=== PATIENT | male | born 1980 | race Caucasian/White ===

== ENCOUNTER 2020-08-15 11:43 | Emergency (ER) | payer OTHER ==
[~2020-08-15] VITALS: Ht 175.3 cm; Wt 106.1 kg
[2020-08-15 11:47] VITALS: BP 156/90
--- NOTE | 2020-08-15 11:50 | NUR ---
Patient ambulated to bed 2. RN evaluating the patient at bedside.
--- NOTE | 2020-08-15 12:01 | NUR ---
40 YEAR OLD MALE COMPLAINS OF LOWER BACK PAIN X 5 DAYS. PT DENIES TRAUMA. PT STATES MORE OF A CHRONIC PAIN. PT AOX4, BREATHING EVEN AND UNLABORED, SKIN WARM AND DRY. BED IN LOWEST POSITION, LOCKED, BED RAIL UPX1. PMH - DENIES ALLERGIES - NKA
[2020-08-15] MEDS ORDERED: ACETAMINOPHEN EXTRA STRENGTH 500 MG TAB PO ONE (12:15)
[2020-08-15] MEDS ORDERED: KETOROLAC 15 MG/ML VIAL IM ONE (12:20)
[2020-08-15] MEDS ORDERED: MORPHINE SULFATE 4 MG/ML SYR IVP ONE (13:25)
[2020-08-15] MEDS ORDERED: ONDANSETRON 4 MG ODT PO ONE (13:25)
[2020-08-15] MEDS ORDERED: NAPR-54 PO (14:29)
[2020-08-15] MEDS ORDERED: ACET-10509 PO (14:30)
[2020-08-15 14:50] VITALS: BP 156/90
--- NOTE | 2020-08-15 14:51 | NUR ---
Patient discharged with v/s stable. Written and verbal after care instructions given BACK PAIN and explained. Patient alert, oriented and verbalized understanding of instructions. Ambulatory with steady gait. All questions addressed prior to discharge. ID band removed. Patient advised to follow up with PMD. Rx of NAPROXEN 500MG PO TID, AND TYNENOL 500MG PO Q6H PRN given. Patient educated on indication of medication including possible reaction and side effects. Opportunity to ask questions provided and answered.
== END 2020-08-15 14:47 | disposition home or self-care (01) ==
LOC: MED 11:43
DX: M54.5 Low back pain (principal); Z79.899 Other long term (current) drug therapy
CPT/HCPCS: 72110; 81002; 96372; 99284; J1885; J2270; Q0162